=== PATIENT | female | born 1995 | race Caucasian/White ===

== ENCOUNTER 2018-06-12 22:34 | Emergency (ER) | payer SELFPAY ==
[2018-06-12 22:35] VITALS: BP 120/85; PULSE 140; RESP 20; TEMP 36.6; O2SAT 100; BMI 21.6
--- NOTE | 2018-06-12 23:02 | RAD_ITS ---
STUDY: X-RAY - LEFT HAND REASON FOR EXAM: Female, 23 years old. Cut finger on glass TECHNIQUE: 3 view(s) of the hand. COMPARISON: None. FINDINGS: Normal radiocarpal articulation. Normal distal radioulnar joint. Normal visualized carpal bones. Normal carpal articulations Normal carpometacarpal articulation of the thumb. Normal second through fifth carpometacarpal joints. Normal metacarpi. Normal metacarpophalangeal joint of the thumb. Normal interphalangeal joint of the thumb. Normal proximal and distal phalanges of the thumb. Normal metacarpophalangeal joints of the second through fifth fingers. Normal proximal and distal interphalangeal joints of the second through fifth fingers. Normal phalanges of the second through fifth fingers. The soft tissue structures are unremarkable. RAD/Hand Min 3 Views IMPRESSION: Normal x-ray examination of the hand. Electronically Signed: Deniz Hawthorne MD at 23:17 EDT , Service support ,
--- NOTE | 2018-06-12 23:42 | ED.DCSUM_ITS ---
- ER Visit Summary Date of Service: 06/12/18 Chief Complaint: [] Laceration base left small finger today cleaning glass History of Present Illness: The patient is a 23 F [] glass cup suffered laceration does not believe is a foreign body no loss of function laceration over the left base medially fifth digit no past history tetanus is up-to-date Physical Examination: [] The left hand is the only issue there is a very small superficial laceration base left fifth digit medially there is no neurovascular tendinous abnormality or finding full range of motion of that digit to flexion extension neurovascular normal, no foreign body, one centimeter Test Results: [] Emergency Department Course and Treatment: [] Obtained shows no foreign body or abnormality laceration was sterilely prepped ti irrigated anesthetized and then closed with 5-0 nylon with good results no foreign bodies appreciated again normal hand finger function before and after procedure she is instructed on wound care states that 7-10 days finger splint Treatment Plan: [] Disposition: [] Home stable Impression: [] 1 cm left hand laceration fifth digit This note was generated with [employer] dictation software. It may contain incorrect words, spelling, and punctuation that were not noted in review of the chart prior to signing ED Disposition - Plan for ED Patient: Chief Complaint: Laceration Referrals: NOT,DEFINED [Primary Care Provider] -
--- NOTE | 2018-06-12 23:42 | ED.DEP ---
ED Disposition - Plan for ED Patient: Chief Complaint: Laceration Instructions: ED Laceration Hand Referrals: NOT,DEFINED [Primary Care Provider] - Additional Instructions: Have stitches removed in 7-10 days keep hand clean and dry follow instructions
[2018-06-13 00:03] VITALS: PULSE 78; RESP 14; O2SAT 98
== END 2018-06-13 00:23 | disposition home or self-care (01) ==
LOC: ED 06-13 00:03
PROVIDERS: Emergency Provider Emergency Medicine
DX: S61.217A Laceration without foreign body of left little finger without damage to nail, initial encounter (principal); W25.XXXA Contact with sharp glass, initial encounter; Y93.9 Activity, unspecified; Y92.9 Unspecified place or not applicable
CPT/HCPCS: 12001; 73130; 99284